=== PATIENT | male | born 1925 | race Caucasian/White ===

== ENCOUNTER 2016-07-31 10:28 | Inpatient (IN) | payer MEDICARE, OTHER ==
--- NOTE | ~2016-07-31 | DS ---
Discharge Summary [facility] [address] [place]. [address] NAME: YASMANI BUTCHER : [birth year] STATUS : ADM IN [facility]#: [id number] AGE: 89 ADM/REG DATE : 07/31/16 MR#: [id number] REPORT SERV DATE: 08/08/16 DICTATED BY: NIRMAL GODDARD DATE: 08/08/16 REPORT STATUS : Draft TRANSCRIBED BY: MODLinda DATE: 08/08/16 ADMISSION DATE: 07/31/2016 DISCHARGE DATE: 08/08/2016 DISCHARGE DIAGNOSES: 1. Non-ST elevation myocardial infarction. 2. Sepsis. 3. Urinary tract infection with chronic indwelling Treviño catheter secondary to benign prostatic hyperplasia. 4. Metabolic encephalopathy secondary to urinary tract infection. 5. Hypertension. 6. Non-insulin diabetes mellitus. 7. Hyponatremia. 8. Hypertension. 9. Paroxysmal atrial fibrillation. 10.Acute decompensated heart failure with preserved ejection fraction. 11.Bilateral pleural effusion. 12.Advanced dementia. CONSULTATION: 1. Cardiology Dr. Daigle. 2. Palliative Care, Dr. Mcqueen. DISCHARGE CONDITION: Stable. HISTORY OF PRESENT ILLNESS: For detailed HPI, please make reference to Dr. Ana Luisa Gutierrez's dictation on 07/31/2016. In brief, this is an 89-year-old male with medical history of BPH with chronic indwelling Treviño catheter, diabetes mellitus, hypertension, advanced dementia, prior history of CVA, who presented to the hospital with generalized weakness, fever, confusion, increased urinary frequency, and urgency. In the ER, was noted to have a temperature of 103.1, blood pressure 135/58, heart rate of 84 respiratory rate of 13, saturating 98% on room air. He was alert and oriented x1. Laboratory data: Procalcitonin 2.52. Lactic acid 1.7. WBC 22.2. INR 1.2. Troponin 5.5. UA positive for leukocyte esterase, positive for nitrites, and many bacteria. An assessment of severe sepsis secondary to catheter-associated urinary tract infection present on admission () was made in the ER, the patient was admitted to the Hospitalist Service. HOSPITAL COURSE: 1. Severe sepsis secondary to urinary tract infection. The patient's blood cultures were taken. Urine cultures were obtained. The patient was started on broad-spectrum antibiotics. The patient's white blood cell gradually trended down. The patient's urine culture was positive for E coli that was pansensitive. The patient's IV antibiotics were now down to IV cefazolin. The patient completed a total of 10 days IV antibiotics during the course of this admission. 2. NSTEMI. The patient's troponin was found to be elevated at 5.5. EKG did not show ST- segment elevation. The patient was placed on heparin drip, aspirin, and Plavix. An Discharge Summary [address] [place]. [address] NAME: YASMANI BUTCHER : [birth year] STATUS : ADM IN [facility]#: [id number] AGE: 89 ADM/REG DATE : 07/31/16 MR#: [id number] REPORT SERV DATE: 08/08/16 DICTATED BY: NIRMLA GODDARD DATE: 08/08/16 REPORT STATUS : Draft TRANSCRIBED BY: MODL DATE: 08/08/16 echocardiogram was obtained that showed apical akinesis, which is new compared to prior echocardiogram. Also, left ventricular ejection fraction was 59%. Cardiology was consulted, however, given the patient's advanced age, we will not benefit from any invasive cardiac. Given the patient's advanced age and overall poor prognosis and per family wishes, no invasive cardiac intervention was obtained. Medical therapy recommended. The patient completed heparin drip for 48 hours without any significant complication. The patient also received aspirin and Plavix and beta-bunny. The patient was advised to continue this medication at the time of discharge. 3. Acute decompensated heart failure with pulmonary vascular congestion. During the course of this admission, the patient was noted to be hypoxic. Repeat chest x-ray shows bilateral pleural effusion with pulmonary vascular congestion. Per family's wishes, no recent invasive procedures was obtained. The patient received IV diuretics. The patient's overall volume status improved. The patient's shortness of breath also improved. 4. Advanced dementia. At baseline, the patient was noted to be bedbound prior to this admission. Given the patient's overall clinical comorbidities and prognosis, Palliative Care was consulted. An extensive discussion was had with the patient's family as regard to the goal of care per family's wishes. The patient's code status was made DNR in keeping with family's wishes. Also, family expressed the wish for the patient to be transition to SNF/hospice. Hospice consult was placed. [facility] came and evaluated the patient. The patient was subsequently transferred to [facility] with hospice. Greater than 30 minutes was used to prepare this patient's discharge, reconcile medication, advise the patient on discharge plans and followup. DICTATED BY: Nirmal Goddard MD IOO/MODL Nirmal Goddard MD / [id number] CC: MD Joe Starkey M.D.
--- NOTE | ~2016-07-31 | CN ---
Consultation Report [facility] [address] [place]. [address] NAME: YASMANI BUTCHER : [birth year] STATUS : ADM IN [facility]#: [id number] AGE: 89 ADM/REG DATE : 07/31/16 MR#: [id number] REPORT SERV DATE: 08/02/16 DICTATED BY: FARZANA DAIGLE JR. DATE: 08/02/16 REPORT STATUS : Draft TRANSCRIBED BY: KARELY DATE: 08/02/16 DATE OF CONSULTATION: INDICATION: Elevated troponin. HISTORY OF PRESENT ILLNESS: The patient is an 89-year-old white male with a history of chronic BPH, a chronic indwelling Treviño catheter changed every few weeks by Home Healthcare, history of xlg-ugwldms-lvksdragf diabetes mellitus, history of prior CVA, history of chronic hypertension, severe debilitation with degenerative joint disease, and progressive end-stage dementia, who at best remembers his name, but is unable to converse or ask significant questions. He is unable to give a history, and is assisted by his and daughter, who are here in the room. On the date of admission, 07/31/2016, he was brought emergently to [facility], lethargic with anorexia, found to have a temperature of 103 with urosepsis. Troponin was elevated at that time over 5 and ECG was abnormal for mild hyperacute ST-T waves, which then improved. Anterior apical leads became biphasic. Echocardiography performed noted borderline normal LV systolic function with ejection fraction of 50% and apical akinesis, new from the last echo in 05/2007 with borderline left atrial dilatation and no significant valvular disease. Currently, he is unable to give a history and at best, can answer simple yes, no questions. There is a suspicion of aspiration, as he choked twice on his food earlier today. REVIEW OF SYSTEMS: A 10-point review of systems, otherwise, is unremarkable. ALLERGIES: NONE KNOWN. MEDICATIONS: At home have included Xanax, Norvasc, aspirin, Colace, hydrochlorothiazide, Zestril, metformin, and Seroquel. PAST MEDICAL HISTORY: Notable for history of hypertension, hyperlipidemia, benign prostatic hypertrophy with bladder outlet obstruction and bladder stones, chronic Treviño catheter placement, diabetes mellitus type 2, hypertension, prior CVA, degenerate joint disease, osteoarthritis, history of colon cancer, history of severe chronic debilitation, history of progressive end-stage dementia with DNR status, past history of anxiety, history of chronic anemia, chronic recurrent UTI, and urosepsis. PAST SURGICAL HISTORY: Notable for tonsillectomy, colon resection, cholecystectomy, inguinal herniorrhaphy, bladder stone, and cataract surgery, SOCIAL HISTORY: Notable for absence of tobacco or ethanol use. He is home bound and at best, occasionally is able to ambulate with assistance of a walker and the home healthcare nurse. He is, at times, bed bound and is completely dependent on other individuals for survival. Consultation Report [facility] [address] [place] [place]. [address] NAME: YASMANI BUTCHER : [birth year] STATUS : ADM IN [facility]#: [id number] AGE: 89 ADM/REG DATE : 07/31/16 MR#: [id number] REPORT SERV DATE: 08/02/16 DICTATED BY: FARZANA DAIGLE JR. DATE: 08/02/16 REPORT STATUS : Draft TRANSCRIBED BY: KARELY DATE: 08/02/16 FAMILY HISTORY: Notable for diabetes. PHYSICAL EXAMINATION: VITAL SIGNS: Blood pressure is 149/70, pulse is 58 and regular, respirations 14, the patient is afebrile, temperature is 99.3. HEENT: Unremarkable. The patient wears glasses. NECK: Supple without jugular venous distention or carotid bruits. CARDIOVASCULAR: Regular rate and rhythm. S3. No S4. LUNGS: Notable for rhonchi bilaterally. Diminished breath sounds at the bases. ABDOMEN: Soft. Normoactive bowel sounds. EXTREMITIES: 1+ with trace pedal edema and venous stasis changes. NEUROLOGIC: He is nonfocal. Is somewhat alert, but unoriented. Answers questions, but cannot provide a conversation. Examination is otherwise nonfocal. LABORATORIES: Include sodium 132, potassium 3.5, chloride 101, BUN 12, creatinine 0.93, GFR of 84, glucose of 145, calcium of 7.3, magnesium of 1.6. H and H of 10 and 29.7, platelet count of 172,000. Troponin of maximum 5.76, now 3.74. TSH 0.598. EKG is notable for prior anterior apical NM, age undetermined. IMPRESSION: An 89-year-old white male with: 1. Progressive end-stage dementia, history of DNR with chronic indwelling Treviño catheter for bladder outlet obstruction post cerebrovascular accident, debilitated with exceptionally poor functional status and completely dependent upon others. 2. Resolving urosepsis with febrile episode earlier this morning. 3. 48 to 72 hours post completed qrx-NF-qagmfjcqi myocardial infarction, likely apical myocardial infarction with no further anginal symptoms and apical akinesis suggestive of a completed infarct. PLANS AND RECOMMENDATIONS: 1. A long discussion with family regarding aggressive versus palliative measures and possible considerations for end of life care. At this time, I would recommend maximizing cardiovascular medications. Heparin has already been discontinued. 2. May offer an outpatient nuclear stress in the form of a Lexiscan Cardiolite in the next three weeks once myocardium has sufficiently healed if family wishes to pursue an aggressive regimen. However, he is not and would not be considered a candidate for CAB. In the best of circumstances, cardiac catheterization if there is a sufficient area of ischemia on postinfarct nuclear stress resulting in a successful PCI might at best improve his symptoms if performed, but would not likely improve mortality and could ultimately contribute to worsening morbidity with very little ultimate gain. This was related to the family and discussed at length. 3. Would recommend swallowing study, as he has had exceptionally high risk for aspiration and pneumonia. We will follow along with you. Consultation Report [address] [place]. [address] NAME: YASMANI BUTCHER : [birth year] STATUS : ADM IN [facility]#: [id number] AGE: 89 ADM/REG DATE : 07/31/16 MR#: [id number] REPORT SERV DATE: 08/02/16 DICTATED BY: FARZANA DAIGLE JR. DATE: 08/02/16 REPORT STATUS : Draft TRANSCRIBED BY: KARELY DATE: 08/02/16 /KARELY Farzana Daigle Jr., M.D. / [id number] CC: Samuel Palmer Jr, MD G. Kent Chastain, M.D.
--- NOTE | ~2016-07-31 | HP ---
History And Physical [facility] [address] [place]. [address] NAME: YASMANI BUTCHER : [birth year] STATUS : ADM IN [facility]#: [id number] AGE: 89 ADM/REG DATE : 07/31/16 MR#: [id number] REPORT SERV DATE: 07/31/16 DICTATED BY: ANA LUISA PEACOCK DATE: 07/31/16 REPORT STATUS : Draft TRANSCRIBED BY: MODLinda DATE: 07/31/16 DATE OF ADMISSION: 07/31/2016 CHIEF COMPLAINT: Fever, weakness, encephalopathy, increased urinary frequency, and urgency since last night. HISTORY OF PRESENT ILLNESS: This is a very pleasant 89-year-old gentleman. He has a history of BPH with chronic Treviño catheter that is changed every few weeks by home health, history of diabetes, noninsulin dependent, hypertension, CVA, history of prior bladder stone, degenerative joint disease, osteoarthritis, history of colon cancer that has been presenting today, accompanied by his as well as his son with complaints that started in fact yesterday. He apparently had clogged Treviño catheter that he has been changed by the home health, and after that, he started to complain of increased urinary frequency, urgency, although he does have this chronic indwelling Treviño secondary to BPH and urinary retention. He was more weak than usual, but not really confused overnight, he slept but he woke up this morning with high fever, very unresponsive, lethargic, and not really eating or drinking, and as a result, the patient's family brought him to [facility] for further evaluation and treatment. Upon discussion with the patient, he is denying any chest pain or increasing shortness of breath. No cough. No sputum production. No abdominal pain. He admits some dysuria. He does not have any nausea, vomiting, diarrhea, or constipation, hematemesis, melena, or hematochezia. No other complaints nor the patient have any recent hospitalization. The patient has been evaluated in the emergency room and the Hospitalist Service has been asked for admission, further evaluation, and treatment. PAST MEDICAL HISTORY: Significant with BPH and urinary retention with chronic indwelling Treviño catheter, history of dementia, history of hypertension, diabetes type 2, noninsulin dependent, history of stroke, cataracts, hyperlipidemia, history of anxiety disorder, prior history of anemia and bladder stones, history of UTI. PAST SURGICAL HISTORY: Include tonsillectomy, colon resection, cholecystectomy, inguinal hernia repair, bladder stone, and cataract. ALLERGIES: THE PATIENT DENIES ANY DRUG ALLERGIES. MEDICATIONS AT HOME: Include Xanax, Norvasc, aspirin, Colace, hydrochlorothiazide, Zestril, metformin, Seroquel. FAMILY HISTORY: Significant for diabetes. REVIEW OF SYSTEMS: A 14-point review of systems has been obtained and pertinent positive has been listed into the history of present illness. Otherwise, negative except those underlying above. PHYSICAL EXAMINATION: VITAL SIGNS: Currently, his T-max is 103.1, blood pressure 135/58, heart rate 84, respiratory rate 13, saturating 98% on room air. History And Physical [address] [address] NAME: YASMANI BUTCHER : [birth year] STATUS : ADM IN [facility]#: [id number] AGE: 89 ADM/REG DATE : 07/31/16 MR#: [id number] REPORT SERV DATE: 07/31/16 DICTATED BY: ANA LUISA PEACOCK DATE: 07/31/16 REPORT STATUS : Draft TRANSCRIBED BY: KARELY DATE: 07/31/16 GENERAL: He is a weak, chronically ill-appearing gentleman, in no acute distress. He does follow some commands. He is alert and oriented x1. Nonfocal, generalized weak. HEENT: Pupils are equal, round, reactive to light. Extraocular movements intact. No JVD. No lymphadenopathy. No thyromegaly appreciated. Dry mucous membranes. CHEST: Bilateral air entry. Clear anteroposterior. No wheezes, crackles, or rhonchi appreciated. CARDIOVASCULAR: Regular rate and rhythm. S1, S2 positive. No S3, no S4. No murmurs, rubs, or gallops appreciated. ABDOMEN: Soft. Positive bowel sounds. Nontender. No guarding. No rebound. EXTREMITIES: No clubbing, cyanosis, or edema. NEUROLOGIC: He is alert and oriented x1. He does follow some commands, but he is extremely confused, unable to give a meaningful history. He is generalized weak and cranial nerves are intact. LABORATORY DATA: Labs from today would include a procalcitonin 2.52. Sodium 131, potassium 4.1, chloride 93, CO2 of 29, BUN 16, creatinine 1.14, glucose is 142. His total bilirubin is 0.5, alkaline phosphatase 91, ALT 79, AST 77. His lactate is 1.7, white count is 22.2, hemoglobin 11.5, hematocrit 33.6, and platelets are 245. Neutrophils are 21 with 16 bands. INR is 1.2. His UA has been positive for large blood, large leukocyte esterase, positive nitrites, many bacteria. His blood cultures currently are pending and urine cultures are pending as well. Chest x-ray, portable, in the emergency room has shown no acute cardiopulmonary abnormalities appreciated and EKG shows that the patient has normal sinus rhythm. No ST-T changes. ASSESSMENT AND PLAN: This is a very pleasant 89-year-old gentleman with 1. Urinary tract infection and sepsis in a patient with history of benign prostatic hyperplasia and chronic indwelling Treviño catheter. 2. Metabolic encephalopathy. 3. Hypertension. 4. Dementia with encephalopathy. 5. History of cerebrovascular accident. 6. Diabetes type 2, noninsulin dependent. The patient is going to be admitted to Hospitalist Service. Regarding his urinary tract infection and sepsis, we are going to place him on vigorous IV hydration, clear liquid diet, and advance as tolerated. Start him on Zosyn. Panculture. We will get a CAT scan of the abdomen and pelvis without contrast in the morning and provide aggressive supportive treatment. 7. History of hypertension. We are going to hold his medications today and we are going to provide p.r.n. hydralazine as needed. 8. History of benign prostatic hyperplasia with chronic Treviño catheter. The patient has already had the change of catheter yesterday. We are going to continue his Terviño. Follow up the cultures and give him IV antibiotics. 9. Diabetes type 2. We are going to hold metformin. We are going to check Accu-Cheks before meals and at bedtime, sliding scale insulin subcutaneously level 1. 10.Dementia. We are going to provide p.r.n. Seroquel and p.r.n. Ativan as needed. 11.We will provide reasonable pain, nausea control, as well as GI and DVT prophylaxis. That has been discussed extensively with the patient's family. All the questions have been answered in full. I have also discussed with the patient's and son, the History And Physical [place] [address] [place]. [address] NAME: YASMANI BUTCHER : [birth year] STATUS : ADM IN [facility]#: [id number] AGE: 89 ADM/REG DATE : 07/31/16 MR#: [id number] REPORT SERV DATE: 07/31/16 DICTATED BY: ANA LUISA PEACOCK DATE: 07/31/16 REPORT STATUS : Draft TRANSCRIBED BY: MODL DATE: 07/31/16 patient wishes in case his condition deteriorates, and they said that the patient does not want any aggressive measures such as intubation, chest compression, mechanical ventilation, defibrillation, cardioversion, or any medications to treat life- threatening arrhythmia or hemodynamic deterioration according to patient's prior wishes well stated. We are going to honor the patient's and family wishes and make him do not resuscitate. Further workup and recommendation pending above. It is also to note that the patient is going to be followed up by Hospitalist Service. CF/MODL Ana Luisa Peacock M.D. / [id number] CC: MD Joe Starkey M.D.
--- NOTE | ~2016-07-31 | IDS ---
Interim Discharge Summary [facility] [address] [place]. [address] NAME: YASMANI BUTCHER : [birth year] STATUS : ADM IN [facility]#: [id number] AGE: 89 ADM/REG DATE : 07/31/16 MR#: [id number] REPORT SERV DATE: 08/04/16 DICTATED BY: JR. PALMER WILLIAM JOHN DATE: 08/04/16 REPORT STATUS : Draft TRANSCRIBED BY: MODLinda DATE: 08/04/16 ADMISSION DATE: 07/31/2016 DISCHARGE DATE: WORKING DIAGNOSES: Include 1. Fluid overload with hypoxia. 2. Ejw-EV-xqohlqjjn myocardial infarction. 3. Urinary tract infection with chronic indwelling Treviño secondary to benign prostatic hypertrophy. 4. Metabolic encephalopathy on top of dementia. 5. Hypertension. 6. Kct-xwflmrw-llscewsda diabetes mellitus. 7. SIADH/hyponatremia. 8. DNAR status. OPERATIONS, PROCEDURES, AND TREATMENTS: Include 1. Chest x-ray done 07/31/2016, which showed no acute process. 2. CT of the abdomen and pelvis done 07/31/2016, which showed no acute abdominal or pelvic pathology. No explanation for abdominal pain. For complete details, please see the primary report. 3. Echocardiogram which showed borderline left ventricular function at 50% with apical akinesia, new since May 2007. 4. Mild left ventricular diastolic dysfunction. 5. Right ventricular systolic function intact. 6. Followup chest x-ray done 08/04/2016, which showed new bilateral perihilar infiltrates and effusion, suggesting congestive changes. CONSULTING PHYSICIAN: Cardiology Dr. Daigle. CURRENT MED LIST: Please see the progress note. HOSPITAL COURSE: The patient is a very pleasant 89-year-old gentleman, who presented to the emergency room on 07/31/2016, with complaint of fever, weakness, encephalopathy, increased urinary frequency, and urgency. The patient has a chronic indwelling Treviño due to benign prostatic hypertrophy. He is followed by home health. The patient also has a history of colon cancer. He presented with complaints of increased urinary frequency, urgency, in the presence of a chronic indwelling Treviño with benign prostatic hypertrophy. He also had a fever and was lethargic with mental status change. On initial exam, temperature was 103.1, blood pressure 135/58, heart rate 84, and respiratory rate 13. He was ill-appearing, followed some commands. Abdomen was nontender with bowel sounds present. Initial laboratory showed large blood with leukocyte esterase, positive nitrites with many bacteria. Cultures from the blood and urine were pending. Interim Discharge Summary [place] [id number] [place]. [address] NAME: YASMANI BUTCHER : [birth year] STATUS : ADM IN [facility]#: [id number] AGE: 89 ADM/REG DATE : 07/31/16 MR#: [id number] REPORT SERV DATE: 08/04/16 DICTATED BY: JR. PALMER WILLIAM JOHN DATE: 08/04/16 REPORT STATUS : Draft TRANSCRIBED BY: KARELY DATE: 08/04/16 The patient is admitted to the hospital for urinary tract infection with delirium/dementia/abdominal pain. The patient was placed on antibiotics, Zosyn. Urine cultures eventually grew Escherichia coli, sensitive to 1st generation cephalosporins. His antibiotic was changed to Kefzol. His Treviño catheter was changed. We would recommend likely a 2-week course of antibiotics changed to ampicillin for the remainder of the oral course. Regarding lom-MN-xdwlzwnsx myocardial infarction, the patient was found to have elevated troponin. He had an echocardiogram which showed new regional wall motion since the most recent previous ultrasound which was 2007. Dr. Daigle of Cardiology saw the patient and felt medical management was appropriate. He had a chest x-ray done today which did show evidence of fluid overload. I will gently diurese the patient with Lasix 20 mg now and again in 8 hours orally. We would repeat a chest x-ray in the morning. Regarding the patient's SIADH and hyponatremia, I did urine studies which showed this to be consistent with hyponatremia. We will decrease his fluid restriction and monitor. Regarding his overall quality of life, the family feels he has poor quality of life. We did discuss palliative care. They have been consulted and will see the patient. The patient's care will be assumed by one of my partners in the morning. WStefanieF/KARELY Samuel Palmer Jr, MD / [id number] CC: Samuel Palmer Jr, MD G. Kent Chastain, M.D.
[~2016-07-31 10:28] MED LIST: ASAB PO; CAT1 PO; CAT2 PO; DIABET2.5 PO; FINASTERIDE PO; FLOMAX4 PO; GLUCOPHAGE1000 MG PO; GLUCPH PO; HYDROCHLOROT25 MG PO; LISINOPRIL40 MG PO; MICROZIDE PO; NORV5 PO; PROSCAR5 PO; PYR100B PO; T PO; TEMOVATE0.051 TOP; TYLENOL PO; VITAMIN B-12 OTC PO; X25 PO; X5 PO; [UNRECOGNIZED DRUG - OTHER] PO; [UNRECOGNIZED DRUG - OTHER] PO
[2016-07-31 12:23] LABS: BASOPHILS 0.1 %; BASOPHILS ABSOLUTE 0.02 10/3/uL (0.0-0.16); EOSINOPHILS 0 %; EOSINOPHILS ABSOLUTE 0.01 10/3/uL (0.0-0.53); HEMATOCRIT 33.6 % (40.0-51.0); HEMOGLOBIN 11.5 g/dL (13.6-17.8); IMMATURE GRANULOCYTES 0.3 %; LYMPHOCYTES 2.2 %; LYMPHOCYTES ABSOLUTE 0.48 10/3/uL (0.67-4.30); MEAN CORPUS HGB CONC 34.2 g/dL (32.0-36.0); MEAN CORPUSCULAR HEMOGLOB 30.7 pg (26.0-34.0); MEAN CORPUSCULAR VOLUME 89.8 fL (80-100); MEAN PLATELET VOLUME 10.3 fL (9.2-13.0); MONOCYTES 6.6 %; MONOCYTES ABSOLUTE 1.47 10/3/uL (0.21-1.20); NEUTROPHILS 90.8 %; NEUTROPHILS ABSOLUTE 20.12 10/3/uL (2.02-8.40); PLATELET COUNT 245 10/3/uL (150-400); RBC DISTRIBUTION WIDTH 13.4 % (12.0-16.0); RED CELL COUNT 3.74 10/6/uL (4.7-6.1)
[2016-07-31 12:24] LABS: ER CBC TAT 0 Hrs 05 Mins; IMMATURE GRANULOCYTES ABSOLUTE 0.07 10/3/uL (0.0-0.11); MANUAL DIFF NO %; WHITE BLOOD CELLS 22.2 10/3/uL (4.5-10.5)
[2016-07-31 12:34] LABS: INTERNATIONAL NORMAL RATI 1.2 UNITS (-); PROTIME (NOT ORD) 15.3 SEC (12.0-14.5)
[2016-07-31 12:37] LABS: BUN (BLOOD UREA NITROGEN) 16 MG/DL (6-23); CALCIUM, SERUM 8.5 MG/DL (8.5-10.4); CHLORIDE, SERUM 93 MMOL/L (96-112); CO2 (CARBON DIOXIDE) 29 MMOL/L (24-34); CREATININE 1.14 MG/DL (0.70-1.30); GFR AFRICAN AMERICAN 66 ML/MIN (>=60); GFR NON AFRICAN AMERICAN 57 ML/MIN (>=60); GLOBULIN 3.1 G/DL (2.5-4.1); GLUCOSE, SERUM 142 MG/DL (60-99); POTASSIUM, SERUM 4.1 MMOL/L (3.5-5.3); SGOT(AST) 77 U/L (5-40); SGPT(ALT) 79 U/L (5-65); SODIUM, SERUM 131 MMOL/L (135-148); TOTAL BILIRUBIN 0.5 MG/DL (0-1.2); TOTAL PROTEIN 6.1 G/DL (6.0-8.5)
[2016-07-31 12:38] LABS: ALKALINE PHOSPHATASE 91 U/L (45-117)
[2016-07-31 12:46] LABS: BAND NEUTROPHILS 16 %; ER DIFF TAT 0 Hrs 27 Mins; LYMPHOCYTES 1 %; LYMPHOCYTES ABSOLUTE (CALC) 0.22 10/3/uL (0.67-4.30); MONOCYTES 4 %; MONOCYTES ABSOLUTE (CALC) 0.89 10/3/uL (0.21-1.20); NEUTROPHILS ABSOLUTE (CALC) 21.09 10/3/uL (2.02-8.40); PLATELET ESTIMATE ADQ (ADEQUATE); RBC MORPHOLOGY NORM (NORMAL); SEGMENTED NEUTROPHIL (0) 79 %; TOTAL NUCLEATED CELLS 100
[2016-07-31 12:47] LABS: ASCORBIC ACID (UR NOT ORDER) NEG (NEG); BILIRUBIN, URINE NEGATIVE (NEG); ER URINALYSIS TAT 0 Hrs 08 Mins; KETONE, URINE NEGATIVE (NEG); LEUKOCYTE ESTERASE(NOT OR LARGE (NEG)
[2016-07-31 12:47] LABS: LACTATE 1.7 MMOL/L (0.3-2.4)
[2016-07-31 12:48] LABS: NITRITE (URINE) POS (NEG); WBC (NOT ORDERED) (RFLEX) > 182 (0-5)
[2016-07-31] MEDS ORDERED: NORV5 PO (13:00)
[2016-07-31] MEDS ORDERED: ZESTRIL40 MG PO (13:00)
[2016-07-31] MEDS ORDERED: DSS PO (13:01)
[2016-07-31] MEDS ORDERED: HALF81 PO (13:01)
[2016-07-31] MEDS ORDERED: HYDROCHLOROT12.5 MG PO (13:01)
[2016-07-31] MEDS ORDERED: SEROQUEL25 PO (13:02)
[2016-07-31] MEDS ORDERED: X5 PO (13:03)
[2016-07-31] MEDS ORDERED: GLUCPH PO (13:04)
[2016-07-31 13:07] LABS: PROCALCITONIN 2.52 ng/mL (<0.5)
[2016-07-31 16:21] LABS: INTERNATIONAL NORMAL RATI 1.4 UNITS (-); PROTIME (NOT ORD) 16.6 SEC (12.0-14.5)
[2016-07-31 17:05] LABS: ACETAMINOPHEN LEVEL (TYLENOL) 6.7 MCG/ML (10.0-20.0); FERRITIN 83 NG/ML (26-388); FREE T4 1.28 NG/DL (0.76-1.46); IRON BINDING CAPACITY 213 MCG/DL (250-450); IRON, SERUM 16 MCG/DL (35-150); PHOSPHORUS, SERUM 2.3 MG/DL (2.5-4.5); PROCALCITONIN 2.93 ng/mL (<0.5)
[2016-07-31 17:06] LABS: ALCOHOL < 10 MG/DL (0); FOLATE 21.5 NG/ML (>5.2); SALICYLATE < 1.7 MG/DL (-); TROPONIN I 5.82 NG/ML (<0.05); ULTRASENSITIVE TSH 0.598 MCIU/ML (0.358-3.740)
[2016-07-31 19:44] LABS: TROPONIN I 5.76 NG/ML (<0.05)
[2016-07-31 21:49] LABS: GLYCOHEMOGLOBIN (HbA1c) 7.1 % (4.7-6.1)
[2016-08-01 04:45] LABS: ASCORBIC ACID (UR NOT ORDER) NEG (NEG); BILIRUBIN, URINE NEGATIVE (NEG); KETONE, URINE NEGATIVE (NEG); LEUKOCYTE ESTERASE(NOT OR LARGE (NEG); WBC (NOT ORDERED) (RFLEX) 152 (0-5)
[2016-08-01 07:56] LABS: BASOPHILS 0.1 %; BASOPHILS ABSOLUTE 0.01 10/3/uL (0.0-0.16); EOSINOPHILS 0.7 %; EOSINOPHILS ABSOLUTE 0.08 10/3/uL (0.0-0.53); HEMOGLOBIN 10.1 g/dL (13.6-17.8); IMMATURE GRANULOCYTES 0.3 %; IMMATURE GRANULOCYTES ABSOLUTE 0.03 10/3/uL (0.0-0.11); LYMPHOCYTES 6.8 %; LYMPHOCYTES ABSOLUTE 0.81 10/3/uL (0.67-4.30); MEAN CORPUS HGB CONC 33.8 g/dL (32.0-36.0); MEAN CORPUSCULAR HEMOGLOB 30.7 pg (26.0-34.0); MEAN CORPUSCULAR VOLUME 90.9 fL (80-100); MEAN PLATELET VOLUME 10.2 fL (9.2-13.0); MONOCYTES 7.4 %; MONOCYTES ABSOLUTE 0.88 10/3/uL (0.21-1.20); NEUTROPHILS 84.7 %; NEUTROPHILS ABSOLUTE 10.02 10/3/uL (2.02-8.40); PLATELET COUNT 198 10/3/uL (150-400); RBC DISTRIBUTION WIDTH 13.6 % (12.0-16.0); RED CELL COUNT 3.29 10/6/uL (4.7-6.1)
[2016-08-01 07:57] LABS: HEMATOCRIT 29.9 % (40.0-51.0); MANUAL DIFF NO %; WHITE BLOOD CELLS 11.8 10/3/uL (4.5-10.5)
[2016-08-01 08:15] LABS: A/G RATIO 0.9 (0.7-1.9); ALBUMIN 2.4 G/DL (3.5-5.0); ALKALINE PHOSPHATASE 74 U/L (45-117); BUN (BLOOD UREA NITROGEN) 16 MG/DL (6-23); CALCIUM, SERUM 7.8 MG/DL (8.5-10.4); CHLORIDE, SERUM 99 MMOL/L (96-112); CO2 (CARBON DIOXIDE) 26 MMOL/L (24-34); CPK (IF ELEVATED MB BANDS) 201 U/L (0-200); CREATININE 1.02 MG/DL (0.70-1.30); GFR AFRICAN AMERICAN 75 ML/MIN (>=60); GFR NON AFRICAN AMERICAN 65 ML/MIN (>=60); GLOBULIN 2.8 G/DL (2.5-4.1); GLUCOSE, SERUM 120 MG/DL (60-99); POTASSIUM, SERUM 3.7 MMOL/L (3.5-5.3); SGOT(AST) 62 U/L (5-40); SGPT(ALT) 68 U/L (5-65); SODIUM, SERUM 132 MMOL/L (135-148); TOTAL BILIRUBIN 0.3 MG/DL (0-1.2); TOTAL PROTEIN 5.2 G/DL (6.0-8.5)
[2016-08-01 09:19] LABS: HEPATITIS B SURFACE ANTIGEN NON-REACTIVE (NON-REACT)
[2016-08-01 09:34] LABS: HEPATITIS C ANTIBODY NON-REACTIVE (NON-REACT)
[2016-08-01 09:35] LABS: HEPATITIS B CORE AB IGM NON-REACTIVE (NON-REAC)
[2016-08-01 09:36] LABS: HEP A ANTIBODY IGM NON-REACTIVE (NON-REACT)
[2016-08-01 09:41] LABS: CK-MB 4.4 NG/ML
[2016-08-02 07:16] LABS: BASOPHILS 0.1 %; BASOPHILS ABSOLUTE 0.01 10/3/uL (0.0-0.16); EOSINOPHILS 1.2 %; HEMATOCRIT 29.7 % (40.0-51.0); IMMATURE GRANULOCYTES 0.1 %; IMMATURE GRANULOCYTES ABSOLUTE 0.01 10/3/uL (0.0-0.11); LYMPHOCYTES 13.6 %; LYMPHOCYTES ABSOLUTE 1.12 10/3/uL (0.67-4.30); MEAN CORPUS HGB CONC 33.7 g/dL (32.0-36.0); MEAN CORPUSCULAR HEMOGLOB 30.7 pg (26.0-34.0); MEAN CORPUSCULAR VOLUME 91.1 fL (80-100); MEAN PLATELET VOLUME 9.9 fL (9.2-13.0); MONOCYTES 9.4 %; MONOCYTES ABSOLUTE 0.77 10/3/uL (0.21-1.20); NEUTROPHILS 75.6 %; NEUTROPHILS ABSOLUTE 6.22 10/3/uL (2.02-8.40); PLATELET COUNT 172 10/3/uL (150-400); RBC DISTRIBUTION WIDTH 13.7 % (12.0-16.0); RED CELL COUNT 3.26 10/6/uL (4.7-6.1); WHITE BLOOD CELLS 8.2 10/3/uL (4.5-10.5)
[2016-08-02 07:17] LABS: MANUAL DIFF NO %
[2016-08-02 07:43] LABS: CALCIUM, SERUM 7.3 MG/DL (8.5-10.4); CHLORIDE, SERUM 101 MMOL/L (96-112); CO2 (CARBON DIOXIDE) 24 MMOL/L (24-34); CREATININE 0.93 MG/DL (0.70-1.30); GFR AFRICAN AMERICAN 84 ML/MIN (>=60); GFR NON AFRICAN AMERICAN 73 ML/MIN (>=60); PHOSPHORUS, SERUM 1.7 MG/DL (2.5-4.5); POTASSIUM, SERUM 3.5 MMOL/L (3.5-5.3); SODIUM, SERUM 132 MMOL/L (135-148)
[2016-08-02 07:44] LABS: BUN (BLOOD UREA NITROGEN) 12 MG/DL (6-23); GLUCOSE, SERUM 145 MG/DL (60-99)
[2016-08-02 17:56] LABS: SODIUM, URINE 77 MEQ/L
[2016-08-02 17:59] LABS: OSMOLALITY, URINE 408 MOSM/KG (50-1200)
[2016-08-03 06:36] LABS: CALCIUM, SERUM 7.5 MG/DL (8.5-10.4); CHLORIDE, SERUM 100 MMOL/L (96-112); CO2 (CARBON DIOXIDE) 26 MMOL/L (24-34); CREATININE 0.83 MG/DL (0.70-1.30); GFR AFRICAN AMERICAN 90 ML/MIN (>=60); GFR NON AFRICAN AMERICAN 78 ML/MIN (>=60); GLUCOSE, SERUM 146 MG/DL (60-99); POTASSIUM, SERUM 3.4 MMOL/L (3.5-5.3); SODIUM, SERUM 134 MMOL/L (135-148)
[2016-08-03 06:37] LABS: BUN (BLOOD UREA NITROGEN) 8 MG/DL (6-23)
[2016-08-04 06:42] LABS: BUN (BLOOD UREA NITROGEN) 13 MG/DL (6-23); CHLORIDE, SERUM 99 MMOL/L (96-112); CO2 (CARBON DIOXIDE) 26 MMOL/L (24-34); GFR AFRICAN AMERICAN 87 ML/MIN (>=60); GFR NON AFRICAN AMERICAN 75 ML/MIN (>=60); GLUCOSE, SERUM 150 MG/DL (60-99); POTASSIUM, SERUM 3.8 MMOL/L (3.5-5.3); SODIUM, SERUM 133 MMOL/L (135-148)
[2016-08-05 07:02] LABS: CALCIUM, SERUM 8.3 MG/DL (8.5-10.4); CHLORIDE, SERUM 96 MMOL/L (96-112); CO2 (CARBON DIOXIDE) 24 MMOL/L (24-34); CREATININE 1.19 MG/DL (0.70-1.30); GFR AFRICAN AMERICAN 62 ML/MIN (>=60); GFR NON AFRICAN AMERICAN 54 ML/MIN (>=60); POTASSIUM, SERUM 3.5 MMOL/L (3.5-5.3); SODIUM, SERUM 129 MMOL/L (135-148)
[2016-08-05 07:03] LABS: BUN (BLOOD UREA NITROGEN) 18 MG/DL (6-23); GLUCOSE, SERUM 193 MG/DL (60-99)
[2016-08-06 06:12] LABS: BASOPHILS 0.1 %; BASOPHILS ABSOLUTE 0.01 10/3/uL (0.0-0.16); EOSINOPHILS ABSOLUTE 0.12 10/3/uL (0.0-0.53); HEMATOCRIT 29.8 % (40.0-51.0); HEMOGLOBIN 10.1 g/dL (13.6-17.8); IMMATURE GRANULOCYTES 0.3 %; IMMATURE GRANULOCYTES ABSOLUTE 0.04 10/3/uL (0.0-0.11); LYMPHOCYTES 12.8 %; LYMPHOCYTES ABSOLUTE 1.58 10/3/uL (0.67-4.30); MEAN CORPUS HGB CONC 33.9 g/dL (32.0-36.0); MEAN CORPUSCULAR HEMOGLOB 30.8 pg (26.0-34.0); MEAN CORPUSCULAR VOLUME 90.9 fL (80-100); MEAN PLATELET VOLUME 10.2 fL (9.2-13.0); MONOCYTES 11.4 %; NEUTROPHILS 74.4 %; NEUTROPHILS ABSOLUTE 9.16 10/3/uL (2.02-8.40); RBC DISTRIBUTION WIDTH 13.7 % (12.0-16.0); RED CELL COUNT 3.28 10/6/uL (4.7-6.1)
[2016-08-06 06:13] LABS: MANUAL DIFF NO %; PLATELET COUNT 343 10/3/uL (150-400); WHITE BLOOD CELLS 12.3 10/3/uL (4.5-10.5)
[2016-08-06 06:22] LABS: BUN (BLOOD UREA NITROGEN) 21 MG/DL (6-23); CALCIUM, SERUM 8.2 MG/DL (8.5-10.4); CHLORIDE, SERUM 97 MMOL/L (96-112); CO2 (CARBON DIOXIDE) 27 MMOL/L (24-34); CREATININE 1.17 MG/DL (0.70-1.30); GFR AFRICAN AMERICAN 64 ML/MIN (>=60); GFR NON AFRICAN AMERICAN 55 ML/MIN (>=60); GLUCOSE, SERUM 172 MG/DL (60-99); SODIUM, SERUM 133 MMOL/L (135-148)
[2016-08-06 06:24] LABS: PHOSPHORUS, SERUM 2.3 MG/DL (2.5-4.5)
[2016-08-06 14:48] LABS: INTERNATIONAL NORMAL RATI 1.3 UNITS (-); PARTIAL THROMBO TIME 38.1 SEC (22.5-37.2); PROTIME (NOT ORD) 15.8 SEC (12.0-14.5)
[2016-08-07 07:23] LABS: BASOPHILS 0.2 %; BASOPHILS ABSOLUTE 0.02 10/3/uL (0.0-0.16); EOSINOPHILS 2.1 %; HEMATOCRIT 31.1 % (40.0-51.0); HEMOGLOBIN 10.4 g/dL (13.6-17.8); IMMATURE GRANULOCYTES 0.4 %; IMMATURE GRANULOCYTES ABSOLUTE 0.04 10/3/uL (0.0-0.11); LYMPHOCYTES 21.9 %; LYMPHOCYTES ABSOLUTE 2.08 10/3/uL (0.67-4.30); MANUAL DIFF NO %; MEAN CORPUS HGB CONC 33.4 g/dL (32.0-36.0); MEAN CORPUSCULAR HEMOGLOB 30.6 pg (26.0-34.0); MEAN CORPUSCULAR VOLUME 91.5 fL (80-100); MEAN PLATELET VOLUME 9.7 fL (9.2-13.0); MONOCYTES 11.1 %; MONOCYTES ABSOLUTE 1.06 10/3/uL (0.21-1.20); NEUTROPHILS 64.3 %; NEUTROPHILS ABSOLUTE 6.11 10/3/uL (2.02-8.40); PLATELET COUNT 372 10/3/uL (150-400); RBC DISTRIBUTION WIDTH 13.8 % (12.0-16.0); WHITE BLOOD CELLS 9.5 10/3/uL (4.5-10.5)
[2016-08-07 07:41] LABS: BUN (BLOOD UREA NITROGEN) 20 MG/DL (6-23); CALCIUM, SERUM 7.9 MG/DL (8.5-10.4); CHLORIDE, SERUM 94 MMOL/L (96-112); CO2 (CARBON DIOXIDE) 30 MMOL/L (24-34); CREATININE 1.22 MG/DL (0.70-1.30); GFR AFRICAN AMERICAN 61 ML/MIN (>=60); GFR NON AFRICAN AMERICAN 52 ML/MIN (>=60); GLUCOSE, SERUM 176 MG/DL (60-99); POTASSIUM, SERUM 3.7 MMOL/L (3.5-5.3); SODIUM, SERUM 133 MMOL/L (135-148)
[2016-08-07 07:43] LABS: PHOSPHORUS, SERUM 3.1 MG/DL (2.5-4.5)
[2016-08-07 18:25] LABS: BASOPHILS 0.1 %; BASOPHILS ABSOLUTE 0.01 10/3/uL (0.0-0.16); EOSINOPHILS ABSOLUTE 0.18 10/3/uL (0.0-0.53); HEMATOCRIT 29.6 % (40.0-51.0); IMMATURE GRANULOCYTES 0.3 %; IMMATURE GRANULOCYTES ABSOLUTE 0.03 10/3/uL (0.0-0.11); LYMPHOCYTES 18.4 %; LYMPHOCYTES ABSOLUTE 1.67 10/3/uL (0.67-4.30); MANUAL DIFF NO %; MEAN CORPUS HGB CONC 33.8 g/dL (32.0-36.0); MEAN CORPUSCULAR VOLUME 91.6 fL (80-100); MEAN PLATELET VOLUME 9.8 fL (9.2-13.0); MONOCYTES 9.7 %; MONOCYTES ABSOLUTE 0.88 10/3/uL (0.21-1.20); NEUTROPHILS 69.5 %; NEUTROPHILS ABSOLUTE 6.32 10/3/uL (2.02-8.40); PLATELET COUNT 392 10/3/uL (150-400); RBC DISTRIBUTION WIDTH 13.6 % (12.0-16.0); RED CELL COUNT 3.23 10/6/uL (4.7-6.1); WHITE BLOOD CELLS 9.1 10/3/uL (4.5-10.5)
[2016-08-08 06:57] LABS: BASOPHILS 0.3 %; BASOPHILS ABSOLUTE 0.03 10/3/uL (0.0-0.16); EOSINOPHILS 1.5 %; EOSINOPHILS ABSOLUTE 0.16 10/3/uL (0.0-0.53); HEMOGLOBIN 11.3 g/dL (13.6-17.8); IMMATURE GRANULOCYTES 0.4 %; IMMATURE GRANULOCYTES ABSOLUTE 0.04 10/3/uL (0.0-0.11); LYMPHOCYTES ABSOLUTE 1.77 10/3/uL (0.67-4.30); MEAN CORPUS HGB CONC 32.6 g/dL (32.0-36.0); MEAN CORPUSCULAR HEMOGLOB 30.9 pg (26.0-34.0); MEAN PLATELET VOLUME 9.7 fL (9.2-13.0); MONOCYTES 11.9 %; MONOCYTES ABSOLUTE 1.24 10/3/uL (0.21-1.20); NEUTROPHILS 68.9 %; NEUTROPHILS ABSOLUTE 7.18 10/3/uL (2.02-8.40); PLATELET COUNT 321 10/3/uL (150-400); RBC DISTRIBUTION WIDTH 13.5 % (12.0-16.0); RED CELL COUNT 3.66 10/6/uL (4.7-6.1); WHITE BLOOD CELLS 10.4 10/3/uL (4.5-10.5)
[2016-08-08 06:58] LABS: HEMATOCRIT 34.7 % (40.0-51.0); MANUAL DIFF NO %; MEAN CORPUSCULAR VOLUME 94.8 fL (80-100)
[2016-08-08 07:09] LABS: BUN (BLOOD UREA NITROGEN) 22 MG/DL (6-23); CALCIUM, SERUM 8.2 MG/DL (8.5-10.4); CHLORIDE, SERUM 91 MMOL/L (96-112); CO2 (CARBON DIOXIDE) 30 MMOL/L (24-34); CREATININE 1.12 MG/DL (0.70-1.30); GFR AFRICAN AMERICAN 67 ML/MIN (>=60); GFR NON AFRICAN AMERICAN 58 ML/MIN (>=60); GLUCOSE, SERUM 176 MG/DL (60-99); PHOSPHORUS, SERUM 2.8 MG/DL (2.5-4.5); POTASSIUM, SERUM 3.8 MMOL/L (3.5-5.3); SODIUM, SERUM 130 MMOL/L (135-148)
[2016-08-08 07:10] LABS: ALBUMIN 1.9 G/DL (3.5-5.0)
== END 2016-08-08 21:03 | disposition hospice, inpatient (51) | DRG 698 ==
LOC: ER 10:28 → 1SO 14:41
PROVIDERS: Emergency Medicine; Hospitalist; Internal Medicine; Internal Medicine Cardiovascular Disease
DX: T83.511A Infection and inflammatory reaction due to indwelling urethral catheter, initial encounter (principal); I21.4 Non-ST elevation (NSTEMI) myocardial infarction; R65.20 Severe sepsis without septic shock; A41.9 Sepsis, unspecified organism; I50.31 Acute diastolic (congestive) heart failure; G93.41 Metabolic encephalopathy; E22.2 Syndrome of inappropriate secretion of antidiuretic hormone; F03.91 Unspecified dementia, unspecified severity, with behavioral disturbance; F05 Delirium due to known physiological condition; N39.0 Urinary tract infection, site not specified; Z66 Do not resuscitate; Z51.5 Encounter for palliative care; I11.0 Hypertensive heart disease with heart failure; I48.0 Paroxysmal atrial fibrillation; R13.12 Dysphagia, oropharyngeal phase; E83.39 Other disorders of phosphorus metabolism; N40.1 Benign prostatic hyperplasia with lower urinary tract symptoms; E87.70 Fluid overload, unspecified; B96.20 Unspecified Escherichia coli [E. coli] as the cause of diseases classified elsewhere; E11.9 Type 2 diabetes mellitus without complications; E78.5 Hyperlipidemia, unspecified; Y83.8 Other surgical procedures as the cause of abnormal reaction of the patient, or of later complication, without mention of misadventure at the time of the procedure; R09.02 Hypoxemia; F41.9 Anxiety disorder, unspecified; Z79.82 Long term (current) use of aspirin; Z79.84 Long term (current) use of oral hypoglycemic drugs; Z79.899 Other long term (current) drug therapy; Z86.73 Personal history of transient ischemic attack (TIA), and cerebral infarction without residual deficits; Z85.038 Personal history of other malignant neoplasm of large intestine; Z90.49 Acquired absence of other specified parts of digestive tract
CPT/HCPCS: 71010; 71250; 74000; 74176; 74230; 80048; 80053; 80069; 80074; 80307; 81001; 82140; 82550; 82553; 82607; 82728; 82746; 82962; 83036; 83540; 83550; 83605; 83615; 83735; 83930; 83935; 84100; 84145; 84300; 84439; 84443; 84484; 85025; 85610; 85730; 87040; 87077; 87086; 87186; 92610-GN; 92611-GN; 93005; 96374; 97162-GP; 97530-GP; 99285; A9270-GY; C8929; C9113; G8978-CL-GP; G8979-CK-GP; G8996-CK-GN; G8997-CK-GN; G8998-CK-GN; J0360; J0690; J1160; J2405; J2543; J3475; Q9957